=== PATIENT | female | born 1955 | race Caucasian/White ===

== ENCOUNTER 2019-01-31 19:02 | Emergency (ER) | payer OTHER, MEDICAID ==
[~2019-01-31] VITALS: Ht 165.1 cm; Wt 70.3 kg
[2019-01-31 19:14] VITALS: BP_SYST 127
--- NOTE | 2019-01-31 19:24 | NUR ---
Patient to ER bed 05 to gown for evaluation. Side rails up.
--- NOTE | 2019-01-31 19:30 | NUR ---
Pt AAO, ambulatory, coming into ER c/o of left eye pain and orbital rim. Pt stated she had fell yesterday and hit her top of her head on the wall. She states she has a history of problems with balance, DM, and HTN. This morning Pt notes eye pain 8/10 along with blurry vision, and corneal scratch on left lateral eye. No other symptoms or complaints noted at this time. Will continue to monitor.
--- NOTE | 2019-01-31 19:35 | NUR ---
Dr. Cardenas at bedside for medical evaluation.
[2019-01-31 21:03] VITALS: BP_SYST 125
--- NOTE | 2019-01-31 21:03 | NUR ---
Patient given written and verbal discharge instructions and verbalizes understanding. ER MD discussed with patient the results and treatment provided. Patient in stable condition. ID arm band removed. Rx of given. Patient educated on pain management and to follow up with PMD. Pain Scale 0/10. Opportunity for questions provided and answered. Medication side effect fact sheet provided.
== END 2019-01-31 21:03 | disposition home or self-care (01) ==
LOC: SED 19:02
DX: S00.12XA Contusion of left eyelid and periocular area, initial encounter (principal); E11.9 Type 2 diabetes mellitus without complications; I10 Essential (primary) hypertension; F32.9 Major depressive disorder, single episode, unspecified; Z86.73 Personal history of transient ischemic attack (TIA), and cerebral infarction without residual deficits; Z88.0 Allergy status to penicillin; Z88.2 Allergy status to sulfonamides; Z88.5 Allergy status to narcotic agent; Z88.6 Allergy status to analgesic agent; W18.09XA Striking against other object with subsequent fall, initial encounter; Y93.89 Activity, other specified; Y92.89 Other specified places as the place of occurrence of the external cause; Y99.8 Other external cause status
CPT/HCPCS: 70450-TC; 70486-TC; 82962; 99284